=== PATIENT | female | born 1935 ===

== ENCOUNTER 2017-07-10 14:12 | Emergency (ER) | payer OTHER ==
[~2017-07-10] VITALS: Ht 160 cm; Wt 79.8 kg
[~2017-07-10 14:12] MED LIST: MECLIZINE HCL25 MG PO; METOPROLOL SUCC50 MG; SYNTHROID112 MCG
[2017-07-10] MEDS ORDERED: IRBESARTAN300 MG (14:21)
== END 2017-07-10 21:29 | disposition home or self-care (01) ==
LOC: ER 14:12
DX: J20.8 Acute bronchitis due to other specified organisms (principal); J11.1 Influenza due to unidentified influenza virus with other respiratory manifestations

== ENCOUNTER 2020-08-12 12:26 | Outpatient (CLI) | payer OTHER ==
[~2020-08-12 12:26] MED LIST changes: +IRBESARTAN300 MG
== END 2020-08-12 15:03 | disposition home or self-care (01) ==
LOC: RAD 12:26
DX: M17.12 Unilateral primary osteoarthritis, left knee (principal)